=== PATIENT | female | born 1995 | race Caucasian/White ===

== ENCOUNTER 2017-09-18 20:41 | Emergency (ER) | payer OTHER ==
[~2017-09-18] VITALS: Ht 152.4 cm; Wt 54.4 kg
[~2017-09-18 20:41] MED LIST: AUGMENTIN 875-1 EACH PO; COLACE100 M1 PO; FERROUS SULFAT325 M3 PO; FLONASE120 SPRAY/ INH; HYDROCHLOROTHIA25 M1 PO; IBUPROFEN600 M1 PO; KEPPRA500 M1 PO; LABETALOL HCL100 M1 PO; LEVSIN0.125 M1 PO; PRENATAL 1 PLUS1 TA2 PO; VALACYCLOVIR500 M1 PO
[2017-09-18 21:08] VITALS: BP 101/64
== END 2017-09-18 22:04 | disposition admitted as inpatient to this hospital (09) ==
LOC: ERH 20:41
DX: M25.531 Pain in right wrist (principal)